=== PATIENT | male | born 1990 | race African-American/Black ===

== ENCOUNTER 2019-10-07 12:23 | Emergency (ER) | payer SELFPAY ==
[~2019-10-07] VITALS: Ht 195.6 cm; Wt 109.0 kg
[2019-10-07] MEDS ORDERED: BACITRACIN ZINC OINT UDPKT TOP ONE (13:15)
[2019-10-07 13:32] VITALS: BP 151/71
== END 2019-10-07 13:36 | disposition home or self-care (01) ==
LOC: ER 12:23
DX: S30.812A Abrasion of penis, initial encounter (principal); Z90.49 Acquired absence of other specified parts of digestive tract; X58.XXXA Exposure to other specified factors, initial encounter; Y93.89 Activity, other specified; Y92.89 Other specified places as the place of occurrence of the external cause; Y99.8 Other external cause status
CPT/HCPCS: 99283

== ENCOUNTER 2020-08-04 12:18 | Emergency (ER) | payer MEDICAID ==
[~2020-08-04] VITALS: Ht 195.6 cm; Wt 106.0 kg
[2020-08-04] MEDS ORDERED: FAMOTIDINE 20MG/2ML VIAL IV STA (12:39)
[2020-08-04] MEDS ORDERED: MORPHINE SULFATE 4 MG/ML CPJ (NOT FOR IM USE) IV STA (12:39)
[2020-08-04] MEDS ORDERED: ONDANSETRON HCL 4MG/2ML INJ IV STA (12:39)
[2020-08-04] MEDS ORDERED: SODIUM CHLORIDE 0.9% 1,000 ML IV ONE (12:45)
[2020-08-04 14:29] LABS: BASOPHILS % 0.4 % (0.0-2.0); EOSINOPHILS % 9.1 % (0.0-5.0); HEMATOCRIT. 41.1 % (42.0-52.0); HEMOGLOBIN. 13.7 g/dL (14.0-18.0); LYMPHOCYTES % 27.6 % (20.0-50.0); MEAN CORPUSCULAR HEMOGLOBIN 33.3 pg (28.0-32.0); MEAN CORPUSCULAR VOLUME 99.9 fL (80.0-94.0); MEAN PLATELET VOLUME 9.1 fl (7.4-10.4); NEUTROPHILS % 55.9 % (40.0-76.0); PLATELET 187 x1000/uL (130-400); RED BLOOD CELL COUNT 4.11 mill/uL (4.7-6.1); RED CELL DISTRIBUTION WIDTH 13.7 % (11.6-14.6)
[2020-08-04 14:31] LABS: CHLORIDE 110 mEq/L (98-107)
[2020-08-04 14:33] LABS: INR 1.1; PROTHROMBIN TIME 11.4 sec (9.6-11.0)
[2020-08-04 14:35] LABS: ETHANOL BLOOD < 10 mg/dL
[2020-08-04 15:22] LABS: CLARITY URINE CLEAR (CLEAR); COLOR URINE YELLOW (YELLOW); KETONES URINE TRACE (NEGATIVE); LEUKOCYTE ESTERASE URINE TRACE (NEGATIVE); NITRITE URINE NEGATIVE (NEGATIVE); OCCULT BLOOD URINE NEGATIVE (NEGATIVE); PROTEIN URINE NEGATIVE (NEGATIVE); SPECIFIC GRAVITY URINE 1.028 (1.005-1.030)
[2020-08-04 15:37] VITALS: BP 125/75
[2020-08-04 15:41] LABS: *AMPHETAMINES SCREEN URINE NEGATIVE (NEGATIVE)
[2020-08-04 15:42] LABS: *BARBITURATES SCREEN URINE NEGATIVE (NEGATIVE); *BENZODIAZEPINES SCREEN URINE NEGATIVE (NEGATIVE); *COCAINE SCREEN URINE NEGATIVE (NEGATIVE); CANNABINOID URINE SCREEN PRESUMTIVE POSITIVE (NEGATIVE); METHADONE URINE SCREEN NEGATIVE (NEGATIVE); OPIATES URINE SCREEN PRESUMTIVE POSITIVE (NEGATIVE); PHENCYCLIDINE URINE SCREEN NEGATIVE (NEGATIVE)
== END 2020-08-04 16:27 | disposition home or self-care (01) ==
LOC: ER 12:18
DX: R10.9 Unspecified abdominal pain (principal); R11.10 Vomiting, unspecified; N28.1 Cyst of kidney, acquired; Z98.890 Other specified postprocedural states
CPT/HCPCS: 36415; 71045; 76705; 80053; 80305; 80320; 81003; 83690; 84484; 85025; 85610; 93005; 96361; 96374; 96375; 99285; J2270; J2405; J3490; J7030; Z7610; G0480

== ENCOUNTER 2020-12-23 23:56 | Emergency (ER) | payer MEDICAID, OTHER ==
[~2020-12-23] VITALS: Ht 195.6 cm; Wt 109.0 kg
[2020-12-24 01:16] LABS: CLARITY URINE CLOUDY (CLEAR); COLOR URINE YELLOW (YELLOW); KETONES URINE TRACE (NEGATIVE); LEUKOCYTE ESTERASE URINE 2+ (NEGATIVE); NITRITE URINE NEGATIVE (NEGATIVE); OCCULT BLOOD URINE 3+ (NEGATIVE); PH URINE 5.5 (4.5-8.0); PROTEIN URINE 1+ (NEGATIVE); SPECIFIC GRAVITY URINE 1.033 (1.005-1.030)
[2020-12-24] MEDS ORDERED: ACETAMINOPHEN 325MG TABLET PO ONE (01:30)
[2020-12-24] MEDS ORDERED: LIDOCAINE HCL 1% 20ML VIAL (Pyxis) INJ INFIL ONE (01:30)
[2020-12-24] MEDS ORDERED: CEFTRIAXONE SODIUM 500 MG/VIAL IM ONE (01:30)
[2020-12-24] MEDS ORDERED: IBUPROFEN 400MG TABLET PO ONE (01:30)
[2020-12-24] MEDS ORDERED: CEPH500C2 MT (03:26)
[2020-12-24] MEDS ORDERED: DOXY100T2 MT (03:26)
[2020-12-24 03:59] VITALS: BP 115/66
== END 2020-12-24 03:59 | disposition home or self-care (01) ==
LOC: ER 23:56
DX: N39.0 Urinary tract infection, site not specified (principal); A64 Unspecified sexually transmitted disease; I51.9 Heart disease, unspecified; Z98.890 Other specified postprocedural states
CPT/HCPCS: 81003; 87086; 96372; 99283; J0696; J3490; Z7610